=== PATIENT | female | born 1960 | race Caucasian/White ===

== ENCOUNTER 2016-10-08 09:02 | Outpatient (CLI) | payer OTHER | END 2016-10-08 09:03 | disposition home or self-care (01) | DX: Z00.00 Encounter for general adult medical examination without abnormal findings (principal) ==

== ENCOUNTER 2020-11-18 18:20 | Outpatient (CLI) | payer SELFPAY | END 2020-11-18 18:21 | disposition EMS.NT | LOC: EMS 18:20 | DX: T17.298A Other foreign object in pharynx causing other injury, initial encounter (principal) ==

== ENCOUNTER 2022-03-12 13:17 | Emergency (ER) | payer OTHER ==
--- OUTSIDE RECORDS SUMMARY | 2022-03-12 13:32 | EXTERNAL MEDICAL SUMMARY RPT | Continuity of Care Document ---
:1960 Author Organization [facility] Address [address] [place] [address] Phone Allergies No information. Encounters No information. Functional Status No information. Immunizations No information. Medications No information. Problems No information. Procedures No information. Results/Labs test date author facility value unit interpret ation Result panel 1 (unknown) (no (unknown) (unknown) (no value) (units (unk nown) date) unknown) (unknown) (no (unknown) (unknown) [address] [place] [address] (units (unknown) date) unknown) (unknown) (no (unknown) (unknown) [place], [place] (units ( unknown) date) [id number] unknown) (unknown) (no (unknown) (unknown) Merged With [facility] (units (unknown) date) unknown) (unknown) (no (unknown) (unknown) Mammography (units (un known) date) Report unknown) (unknown) (no (unknown) (unknown) Signed (units (unkno wn) date) unknown) (unknown) (no (unknown) (unknown) Ultrasound Report (units (unknown) date) unknown) (unknown) (no (unknown) (unknown) (no value) (units (unk nown) date) unknown) (unknown) (no (unknown) (unknown) 12/27/21 (units (unkno wn) date) unknown) (unknown) (no (unknown) (unknown) 15% of breast (units ( unknown) date) malignancies will unknown) not be visualized mammographically. In the (unknown) (no (unknown) (unknown) 9.1% and her 10 (units (unknown) date) year risk is 3.5%. unknown) According to the ACR, ACS, and NCCN (unknown) (no (unknown) (unknown) ACR BI-RADS (units (un known) date) Category 2: Benign unknown) Finding(s) 3342F (unknown) (no (unknown) (unknown) Aorta: Proximal (units (unknown) date) aorta measures 2.3 unknown) x 2.4 cm. Mid aorta measures 1.7 x 1.6 cm. (unknown) (no (unknown) (unknown) Approved by: (units (u nknown) date) Andrea Chandra M.D. on unknown) 12/27/2021 at 10:07 (unknown) (no (unknown) (unknown) Based on the (units (u nknown) date) Tyrer Helderzick model unknown) (a risk assessment model) the patient's (unknown) (no (unknown) (unknown) CLINICAL: Late (units (unknown) date) Short term follow unknown) up of the left breast, due for bilateral (unknown) (no (unknown) (unknown) COMPARISON: None. (units (unknown) date) unknown) (unknown) (no (unknown) (unknown) Comparison is (units ( unknown) date) made to exams unknown) dated: 12/18/2018 mammogram, 11/27/2018 mammogram, (unknown) (no (unknown) (unknown) Dictated by: (units (u nknown) date) Andrea Chandra M.D. on unknown) 12/27/2021 at 10:05 (unknown) (no (unknown) (unknown) Electronically (units (unknown) date) Signed By: Aby Collins M.D. (unknown) (no (unknown) (unknown) FINDINGS: (units (unkn own) date) unknown) (unknown) (no (unknown) (unknown) Findings and (units (u nknown) date) recommendations unknown) were conveyed to the patient at time of exam. (unknown) (no (unknown) (unknown) IMPRESSION: No (units (unknown) date) abdominal aortic unknown) aneurysm. (unknown) (no (unknown) (unknown) IMPRESSION: (units (un known) date) BENIGN unknown) (unknown) (no (unknown) (unknown) INDICATIONS: (units (u nknown) date) SCREENING; FAMILY unknown) HISTORY OF ISCHEMIC HEART DISEASE (unknown) (no (unknown) (unknown) Iliac arteries: (units (unknown) date) Right common iliac unknown) artery measures 0.9 x 1.0 cm. Left common (unknown) (no (unknown) (unknown) NOTE: For (units (unkn own) date) mammograms, a unknown) report in lay terms will be sent to the patient. (unknown) (no (unknown) (unknown) No other (units (unkno wn) date) abnormality seen unknown) in either breast. Mammograms are otherwise stable. (unknown) (no (unknown) (unknown) TECHNIQUE: Real (units (unknown) date) time scanning was unknown) performed of the aorta and iliac arteries, (unknown) (no (unknown) (unknown) The equal density (units (unknown) date) asymmetry in the unknown) left breast has been stable for 3 years, is (unknown) (no (unknown) (unknown) There is a stable (units (unknown) date) equal density unknown) asymmetry with occasional punctate (unknown) (no (unknown) (unknown) There is no (units (un known) date) mammographic unknown) evidence of malignancy. Return to annual mammogram (unknown) (no (unknown) (unknown) This exam was (units ( unknown) date) interpreted at unknown) Station ID: [id number]. (unknown) (no (unknown) (unknown) a palpable breast (units (unknown) date) mass, a negative unknown) mammogram must not discourage biopsy of a (unknown) (no (unknown) (unknown) additional views (units (unknown) date) and was not seen unknown) as a discrete structure on prior ultrasound. (unknown) (no (unknown) (unknown) annual breast MRI (units (unknown) date) exam along with unknown) mammogram is recommended if the patient's (unknown) (no (unknown) (unknown) aorta measures (units (unknown) date) 1.5 x 1.6 cm. unknown) (unknown) (no (unknown) (unknown) artery measures (units (unknown) date) 0.8 x 1.2 cm. unknown) (unknown) (no (unknown) (unknown) documentation. (units (unknown) date) unknown) (unknown) (no (unknown) (unknown) heterogeneously (units (unknown) date) dense. This may unknown) lower the sensitivity of mammography. (unknown) (no (unknown) (unknown) is 20% or (units (unkn own) date) greater. unknown) (unknown) (no (unknown) (unknown) krg/:12/27/2021 (units (unknown) date) 09:35:54 unknown) (unknown) (no (unknown) (unknown) left breast at 12 (units (unknown) date) o'clock in the unknown) retroareolar region. This is not confirmed (unknown) (no (unknown) (unknown) letter sent: (units (u nknown) date) Normal Exam unknown) (unknown) (no (unknown) (unknown) mammogram, and (units (unknown) date) 10/20/2014 unknown) mammogram - [facility]. The tissue of both breasts (unknown) (no (unknown) (unknown) schedule is (units (un known) date) recommended. unknown) (unknown) (no (unknown) (unknown) suspicious (units (unk nown) date) lesion. unknown) (unknown) (no (unknown) (unknown) with (units (unkno wn) date) fibroglandular unknown) tissue and is benign. (unknown) (no (unknown) (unknown) 04/17/2016 (units (unk nown) date) unknown) (unknown) (no (unknown) (unknown) Accession Number: (units (unknown) date) [id number] unknown) (unknown) (no (unknown) (unknown) Accession Number: (units (unknown) date) [id number] unknown) (unknown) (no (unknown) (unknown) Age/Sex: 61 / F (units (unknown) date) Date of Service: unknown) (unknown) (no (unknown) (unknown) Approximately (units ( unknown) date) unknown) (unknown) (no (unknown) (unknown) BILATERAL DIGITAL (units (unknown) date) DIAGNOSTIC unknown) MAMMOGRAM 3D/2D: 12/27/2021 (unknown) (no (unknown) (unknown) : 1960 (units (unknown) date) Acct:[id number] unknown) (unknown) (no (unknown) (unknown) Distal (units (unkno wn) date) unknown) (unknown) (no (unknown) (unknown) Loc: MAMMO (units (unk nown) date) unknown) (unknown) (no (unknown) (unknown) [id number] (units (unk nown) date) unknown) (unknown) (no (unknown) (unknown) Ordering (units (unkno wn) date) Provider: unknown) Francine Mayfield (unknown) (no (unknown) (unknown) PROCEDURE: US ABD (units (unknown) date) AORTA ANEURYSM unknown) SCREEN (unknown) (no (unknown) (unknown) Patient: (units (unkno wn) date) Laurence Stewart unknown) MR#: (unknown) (no (unknown) (unknown) Procedure: MM (units ( unknown) date) diagnostic mammo unknown) BI (unknown) (no (unknown) (unknown) Procedure: US abd (units (unknown) date) aorta aneurysm unknown) screen (unknown) (no (unknown) (unknown) calcifications in (units (unknown) date) the unknown) (unknown) (no (unknown) (unknown) clinically (units (unk nown) date) unknown) (unknown) (no (unknown) (unknown) consistent (units (unk nown) date) unknown) (unknown) (no (unknown) (unknown) guidelines, an (units (unknown) date) unknown) (unknown) (no (unknown) (unknown) iliac (units (unkno wn) date) unknown) (unknown) (no (unknown) (unknown) imaging. (units (unkno wn) date) unknown) (unknown) (no (unknown) (unknown) is (units (unkno wn) date) unknown) (unknown) (no (unknown) (unknown) lifetime risk (units ( unknown) date) unknown) (unknown) (no (unknown) (unknown) lifetime risk is (units (unknown) date) unknown) (unknown) (no (unknown) (unknown) management of (units ( unknown) date) unknown) (unknown) (no (unknown) (unknown) screening (units (unkn own) date) unknown) (unknown) (no (unknown) (unknown) with (units (unkno wn) date) unknown) (unknown) (no (unknown) (unknown) with image (units (unk nown) date) unknown) Result panel 2 (unknown) (no date) (unknown) (unknown) 0 /uL (unkn own) (unknown) (no date) (unknown) (unknown) 0.7 % (unkn own) (unknown) (no date) (unknown) (unknown) 13.9 % (unkn own) (unknown) (no date) (unknown) (unknown) 14.8 g/dL (unkn own) (unknown) (no date) (unknown) (unknown) 1900 /uL (unkn own) (unknown) (no date) (unknown) (unknown) 200 /uL (unkn own) (unknown) (no date) (unknown) (unknown) 2700 /uL (unkn own) (unknown) (no date) (unknown) (unknown) 274 X10 3/uL (unkn own) (unknown) (no date) (unknown) (unknown) 28.8 PG (unkn own) (unknown) (no date) (unknown) (unknown) 3.5 % (unkn own) (unknown) (no date) (unknown) (unknown) 300 /uL (unkn own) (unknown) (no date) (unknown) (unknown) 34.6 % (unkn own) (unknown) (no date) (unknown) (unknown) 36.4 % (unkn own) (unknown) (no date) (unknown) (unknown) 42.9 % (unkn own) (unknown) (no date) (unknown) (unknown) 5.1 X10 3/uL (unkn own) (unknown) (no date) (unknown) (unknown) 5.15 X10 6/uL (unkn own) (unknown) (no date) (unknown) (unknown) 53.0 % (unkn own) (unknown) (no date) (unknown) (unknown) 6.4 % (unkn own) (unknown) (no date) (unknown) (unknown) 83.2 fL (unkn own) Result panel 3 (unknown) (no date) (unknown) (unknown) 5.6 % (unkn own) Result panel 4 (unknown) (no date) (unknown) (unknown) > 60 mL/min (unkn own) (unknown) (no date) (unknown) (unknown) 0.6 mg/dL (unkn own) (unknown) (no date) (unknown) (unknown) 0.81 mg/dL (unkn own) (unknown) (no date) (unknown) (unknown) 1.8 (units unknown) (unknown) (unknown) (no date) (unknown) (unknown) 103 mmol/L (unkn own) (unknown) (no date) (unknown) (unknown) 13 mg/dL (unkn own) (unknown) (no date) (unknown) (unknown) 139 mmol/L (unkn own) (unknown) (no date) (unknown) (unknown) 16.0 (units unknown) (unknown) (unknown) (no date) (unknown) (unknown) 2.6 g/dL (unkn own) (unknown) (no date) (unknown) (unknown) 25 IU/L (unkn own) (unknown) (no date) (unknown) (unknown) 25 mmol/L (unkn own) (unknown) (no date) (unknown) (unknown) 32 IU/L (unkn own) (unknown) (no date) (unknown) (unknown) 4.5 mmol/L (unkn own) (unknown) (no date) (unknown) (unknown) 4.6 g/dL (unkn own) (unknown) (no date) (unknown) (unknown) 56 U/L (unkn own) (unknown) (no date) (unknown) (unknown) 7.2 g/dL (unkn own) (unknown) (no date) (unknown) (unknown) 9.8 mg/dL (unkn own) (unknown) (no date) (unknown) (unknown) 92 mg/dL (unkn own) Result panel 5 (unknown) (no date) (unknown) (unknown) 17.2 pg/mL (unkn own) (unknown) (no date) (unknown) (unknown) 72.7 mIU/mL (unkn own) Result panel 6 (unknown) (no date) (unknown) (unknown) > 60 mL/min (unkn own) (unknown) (no date) (unknown) (unknown) 0 /uL (unkn own) (unknown) (no date) (unknown) (unknown) 0.6 mg/dL (unkn own) (unknown) (no date) (unknown) (unknown) 0.7 % (unkn own) (unknown) (no date) (unknown) (unknown) 0.81 mg/dL (unkn own) (unknown) (no date) (unknown) (unknown) 1.8 (units unknown) (unknown) (unknown) (no date) (unknown) (unknown) 103 mmol/L (unkn own) (unknown) (no date) (unknown) (unknown) 13 mg/dL (unkn own) (unknown) (no date) (unknown) (unknown) 13.9 % (unkn own) (unknown) (no date) (unknown) (unknown) 139 mmol/L (unkn own) (unknown) (no date) (unknown) (unknown) 14.8 g/dL (unkn own) (unknown) (no date) (unknown) (unknown) 16.0 (units unknown) (unknown) (unknown) (no date) (unknown) (unknown) 17.2 pg/mL (unkn own) (unknown) (no date) (unknown) (unknown) 1900 /uL (unkn own) (unknown) (no date) (unknown) (unknown) 2.6 g/dL (unkn own) (unknown) (no date) (unknown) (unknown) 200 /uL (unkn own) (unknown) (no date) (unknown) (unknown) 25 IU/L (unkn own) (unknown) (no date) (unknown) (unknown) 25 mmol/L (unkn own) (unknown) (no date) (unknown) (unknown) 2700 /uL (unkn own) (unknown) (no date) (unknown) (unknown) 274 X10 3/uL (unkn own) (unknown) (no date) (unknown) (unknown) 28.8 PG (unkn own) (unknown) (no date) (unknown) (unknown) 3.5 % (unkn own) (unknown) (no date) (unknown) (unknown) 300 /uL (unkn own) (unknown) (no date) (unknown) (unknown) 32 IU/L (unkn own) (unknown) (no date) (unknown) (unknown) 34.6 % (unkn own) (unknown) (no date) (unknown) (unknown) 36.4 % (unkn own) (unknown) (no date) (unknown) (unknown) 4.5 mmol/L (unkn own) (unknown) (no date) (unknown) (unknown) 4.6 g/dL (unkn own) (unknown) (no date) (unknown) (unknown) 42.9 % (unkn own) (unknown) (no date) (unknown) (unknown) 5.1 X10 3/uL (unkn own) (unknown) (no date) (unknown) (unknown) 5.15 X10 6/uL (unkn own) (unknown) (no date) (unknown) (unknown) 5.6 % (unkn own) (unknown) (no date) (unknown) (unknown) 53.0 % (unkn own) (unknown) (no date) (unknown) (unknown) 56 U/L (unkn own) (unknown) (no date) (unknown) (unknown) 6.4 % (unkn own) (unknown) (no date) (unknown) (unknown) 7.2 g/dL (unkn own) (unknown) (no date) (unknown) (unknown) 72.7 mIU/mL (unkn own) (unknown) (no date) (unknown) (unknown) 83.2 fL (unkn own) (unknown) (no date) (unknown) (unknown) 9.8 mg/dL (unkn own) (unknown) (no date) (unknown) (unknown) 92 mg/dL (unkn own) Social History No information. Vital Signs No information.
[2022-03-12 13:37] VITALS: BP 128/95
[2022-03-12] MEDS ORDERED: CLINDAMYCIN 150 MG CAPSULE PO STA (15:42)
[2022-03-12] MEDS ORDERED: MECLIZINE 12.5 MG TABLET PO STA (15:42)
--- NOTE | 2022-03-12 15:43 | ED Physician Documentation ---
History of Present Illness - Stated complaint Stated Complaint: NAUSEA/L THUMB PX/HIGH BP - Chief complaint Chief Complaint: Wound - History obtained from History obtained from: Patient - History of Present Illness Timing: How many weeks ago (1) Pain level max: 3 Pain level now: 3 - Additonal information Additional information: 62-year-old female presents to the emergency department with a wound to the left thumb. She states it drained purulent material earlier in the day. Has had redness and swelling. Nothing makes it better or worse. Has also had mild nausea. 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 Review of Systems Constitutional: denies: Fever, Chills Throat: denies: Sore throat Respiratory: denies: Cough GI: reports: Nausea. denies: Vomiting Skin: denies: Rash Musculoskeletal: denies: Neck pain, Back pain PD PAST MEDICAL HISTORY - Past Medical History Psych: Anxiety - Present Medications Home Medications: Ambulatory Orders Medication Instructions Recorded Confirmed Meclizine HCl [Motion Sickness] 25 mg PO Q6H PRN #20 tablet 03/12/22 clindamycin HCL [Cleocin HCl] 300 mg PO Q6H #28 cap 03/12/22 - Allergies Allergies/Adverse Reactions: Allergies Allergy/AdvReac Type Severity Reaction Status Date / Time ondansetron [From Zofran] Allergy Unknown Verified 03/12/22 13:38 prochlorperazine Allergy Unknown Verified 03/12/22 13:38 [From Compazine] - Living Situation Living Arrangement: reports: At home - Social History Does the pt have substance abuse?: No - Family History Family history: reports: Non contributory PD ED PE NORMAL - Vitals Vital signs reviewed: Yes - General General: Alert and oriented X 3, No acute distress - HEENT HEENT: Moist mucous membranes - Neck Neck: Supple, no meningeal sign - Respiratory Respiratory: No respiratory distress - Abdomen Abdomen: Soft, Non tender, Non distended - Derm Derm: Warm and dry - Extremities Extremities: Other (Erythema to the left thumb, dorsal aspect near the nail fold. There appears to been purulent drainage recently. There is no streaking up the hand. It is localized erythema. No tenderness log the palmar aspect. No swelling. Neurovascularly intact) - Neuro Neuro: Alert and oriented X 3 - Psych Psych: Normal mood, Normal affect Results - Vitals Vitals: Vital Signs - 24 hr 03/12/22 13:31 Temperature 36.2 C L Heart Rate 94 Respiratory 16 Rate Blood Pressure 128/95 H O2 Saturation 99 Oxygen O2 Source Room air PD MEDICAL DECISION MAKING - ED course Complexity details: considered differential, d/w patient ED course: Patient appears to have a small amount of cellulitis to the left thumb likely from a paronychia that spontaneously drained. Does not require drainage today. Will place on antibiotics for this. Patient has been using topical antibiotics without relief. We we will also trial her on meclizine for her nausea as she states she has allergies to Zofran and Compazine. Patient is well-appearing, nontoxic. Afebrile. Well-hydrated. No evidence of sepsis. Patient counseled regarding signs and symptoms for which I believe and urgent re-evaluation would be necessary. Patient with good understanding of and agreement to plan and is comfortable going home at this time This document was made in part using voice recognition software. While efforts are made to proofread this document, sound alike and grammatical errors may occur. Departure - Departure Disposition: 01 Home, Self Care Clinical Impression: Paronychia, Nausea Cellulitis Qualifiers: Site of cellulitis: extremity Site of cellulitis of extremity: upper extremity Laterality: left Qualified Code(s): L03.114 - Cellulitis of left upper limb Condition: Good Instructions: ED Infec Skin Cellulitis, ED Fingernail Infec Follow-Up: your,doctor in 1 week [Other] Prescriptions: clindamycin HCL [Cleocin HCl] 300 mg PO Q6H #28 cap Meclizine HCl [Motion Sickness] 25 mg PO Q6H PRN #20 tablet PRN Reason: nausea Comments: Your prescriptions were sent to [facility] in [place]. Please follow-up with your doctor for further care. Follow-up with your doctor in 1 week for a wound check. Return if you worsen. Discharge Date/Time: 03/12/22 15:56
== END 2022-03-12 15:56 | disposition home or self-care (01) ==
LOC: ED 13:17
DX: L03.012 Cellulitis of left finger (principal); R11.0 Nausea
CPT/HCPCS: 99282; 99284; A9270

== ENCOUNTER 2022-03-26 07:42 | Outpatient (CLI) | payer OTHER ==
[2022-03-26 08:15] LABS: ALBUMIN 4.4 g/dL (3.2-5.5); ALBUMIN/GLOBULIN RATIO 1.5 (1.0-2.2); ALKALINE PHOSPHATASE 59 IU/L (42-121); ALT ALANINE AMINOTRANSFERASE 17 IU/L (10-60); AST ASPARTATE AMINOTRANSFERASE 21 IU/L (10-42); BILIRUBIN,TOTAL 0.6 mg/dL (0.2-1.0); BUN - BLOOD UREA NITROGEN 10 mg/dL (6-20); CALCIUM 9.5 mg/dL (8.5-10.3); CARBON DIOXIDE - CO2 25 mmol/L (21-32); CHLORIDE 105 mmol/L (101-111); CHOL/HDL RATIO 4.5 (<4.4); CHOLESTEROL 264 mg/dL; CREATININE 0.9 mg/dL (0.4-1.0); GFR - MDRD 64 (>89); GLUCOSE 104 mg/dL (70-100); HDL CHOLESTEROL 59 mg/dL; LDL CHOLESTEROL,CALCULATED 184 mg/dL; LDL/HDL RATIO 3.1 (<4.4); POTASSIUM 4.2 mmol/L (3.5-5.0); SODIUM 139 mmol/L (135-145); TOTAL PROTEIN 7.3 g/dL (6.7-8.2); TRIGLYCERIDES 105 mg/dL; VLDL CHOLESTEROL 21 mg/dL
[2022-03-26 12:37] LABS: ESTIMATED AVERAGE GLUCOSE 111 mg/dL (70-100); HEMOGLOBIN A1c% 5.5 % (4.27-6.07)
== END 2022-03-26 07:43 | disposition home or self-care (01) ==
LOC: LAB 07:42
PROVIDERS: ATTEND Family Medicine
DX: E56.9 Vitamin deficiency, unspecified (principal); R73.09 Other abnormal glucose; R91.1 Solitary pulmonary nodule; E27.8 Other specified disorders of adrenal gland; R03.0 Elevated blood-pressure reading, without diagnosis of hypertension
CPT/HCPCS: 36415; 80053; 80061; 82306; 83036; 83721

== ENCOUNTER 2022-07-03 18:30 | Emergency (ER) | payer OTHER ==
--- NOTE | 2022-07-03 18:54 | ED Physician Documentation ---
History of Present Illness - Stated complaint Stated Complaint: BP HIGH/HEART RACING - History obtained from History obtained from: Patient - Additonal information Additional information: 62-year-old woman with history of borderline type 2 diabetes on Ozempic, she also takes venlafaxine and BuSpar. She is been feeling bad for the last few days, can nonspecific. Foggy, nauseous. Not a headache per se but a bandlike pressure like she was "hung over." This evening she started to feel intermittent palpitations with mild chest discomfort and checked her blood pressure several times at home and it was in the range of 180/110. Denies pedal edema or calf pain. No abdominal pain or diarrhea. She checked herself for COVID several times and it was negative. Review of Systems Constitutional: reports: Fatigue. denies: Fever, Chills Cardiac: reports: Chest pain / pressure (Very mild), Palpitations Respiratory: denies: Dyspnea PD PAST MEDICAL HISTORY - Past Medical History Psych: Anxiety - Present Medications Home Medications: Ambulatory Orders Medication Instructions Recorded Confirmed Meclizine HCl [Motion Sickness] 25 mg PO Q6H PRN #20 tablet 03/12/22 clindamycin HCL [Cleocin HCl] 300 mg PO Q6H #28 cap 03/12/22 - Allergies Allergies/Adverse Reactions: Allergies Allergy/AdvReac Type Severity Reaction Status Date / Time ondansetron [From Zofran] Allergy Unknown Verified 03/12/22 13:38 prochlorperazine Allergy Unknown Verified 03/12/22 13:38 [From Compazine] - Social History Does the pt have substance abuse?: No PD ED PE NORMAL - Vitals Vital signs reviewed: Yes - General General: Alert and oriented X 3, No acute distress - HEENT HEENT: PERRL, EOMI, Dentition benign - Neck Neck: Supple, no meningeal sign, No bony TTP - Cardiac Cardiac: RRR, No murmur - Respiratory Respiratory: No respiratory distress, Clear bilaterally - Abdomen Abdomen: Normal bowel sounds, Soft, Non tender - Back Back: No CVA TTP, No spinal TTP - Derm Derm: Normal color, Warm and dry - Extremities Extremities: No edema, No calf tenderness / cord - Neuro Neuro: Alert and oriented X 3, script developer 2-12 intact, No motor deficit, No sensory deficit, Normal speech Eye Opening: Spontaneous Motor: Obeys Commands Verbal: Oriented GCS Score: 15 - Psych Psych: Normal mood, Normal affect Results - Vitals Vitals: Vital Signs - 24 hr 07/03/22 07/03/22 18:48 19:29 Temperature 36.4 C L Heart Rate 94 85 Respiratory 12 15 Rate Blood Pressure 144/104 H 130/96 H O2 Saturation 100 98 Oxygen O2 Source Room air - EKG (time done) 1839 Rate: Rate (enter#) (86) Rhythm: NSR [place]: Normal Intervals: Normal [place] QRS: Normal Ischemia: Q waves - Labs Labs: Laboratory Tests 07/03/22 07/03/22 07/03/22 18:47 19:00 19:00 WBC 5.9 RBC 5.07 Hgb 13.8 Hct 42.8 MCV 84.4 MCH 27.2 MCHC 32.2 RDW 13.6 Plt Count 305 MPV 8.9 Neut # (Auto) 2.7 Lymph # (Auto) 2.8 [place] # (Auto) 0.3 Eos # (Auto) 0.2 Baso # (Auto) 0.0 Absolute Nucleated RBC 0.00 Nucleated RBC % 0.0 Sodium 139 Potassium 3.4 L Chloride 102 Carbon Dioxide 25 Anion Gap 12.0 BUN 17 Creatinine 0.8 Estimated GFR (MDRD) 73 L Glucose 109 H POC Whole Bld Glucose 104 H Calcium 9.5 Magnesium 1.9 Total Bilirubin 0.4 AST 21 ALT 21 Alkaline Phosphatase 61 Troponin I High Sens Total Protein 7.3 Albumin 4.3 Globulin 3.0 Albumin/Globulin Ratio 1.4 TSH 07/03/22 07/03/22 19:00 19:00 WBC RBC Hgb Hct MCV MCH MCHC RDW Plt Count MPV Neut # (Auto) Lymph # (Auto) [place] # (Auto) Eos # (Auto) Baso # (Auto) Absolute Nucleated RBC Nucleated RBC % Sodium Potassium Chloride Carbon Dioxide Anion Gap BUN Creatinine Estimated GFR (MDRD) Glucose POC Whole Bld Glucose Calcium Magnesium Total Bilirubin AST ALT Alkaline Phosphatase Troponin I High Sens 2.8 Total Protein Albumin Globulin Albumin/Globulin Ratio TSH 2.48 PD Medical Decision Making - ED course ED course: On the monitor she is having occasional PVCs which do correspond to her palpitations. Her blood pressure is better here than it was at home. Her blood sugar here is 104 which is unremarkable. Twelve-lead EKG showing PVC with small inferior Q waves which could be a normal variant. No ST elevation or depression. 62-year-old female presents with nonspecific symptoms marked with brain fog and palpitations. The palpitations do correspond to PVCs on the monitor. CBC reviewed and normal. CMP reviewed with mild hypokalemia at 3.4. Troponin reviewed at 2.8 normal. TSH reviewed at 2.48, normal. Potassium was repleted orally as this may exacerbate her PVCs. Departure - Departure Disposition: 01 Home, Self Care Clinical Impression: Premature ventricular contraction, Hypokalemia Headache Qualifiers: Headache type: unspecified Headache chronicity pattern: unspecified pattern Intractability: not intractable Qualified Code(s): R51.9 - Headache, unspecified Condition: Good Record reviewed to determine appropriate education?: Yes Instructions: Premature Ventricular Contract About Comments: No serious process was identified today. You do have premature ventricular contractions. Your potassium was borderline low at 3.4. You did receive a potassium supplement orally here. Call your doctor to arrange a follow-up appointment, make the next available appointment. In the interim, return anytime if worse or if new symptoms develop.
[2022-07-03 19:06] LABS: BASOPHILS % (AUTO) 0.5 %; EOSINOPHILS # (AUTO) 0.2 10^3/uL (0.0-0.7); EOSINOPHILS % (AUTO) 2.5 %; HCT - HEMATOCRIT 42.8 % (37.0-47.0); HGB - HEMOGLOBIN 13.8 g/dL (12.0-16.0); LYMPHOCYTES # (AUTO) 2.8 10^3/uL (1.5-3.5); LYMPHOCYTES % (AUTO) 46.3 %; MEAN CORPUSCULAR HEMOGLOBIN 27.2 pg (27.0-31.0); MEAN CORPUSCULAR HGB CONC 32.2 g/dL (32.0-36.0); MEAN CORPUSCULAR VOLUME 84.4 fL (81.0-99.0); MEAN PLATELET VOLUME 8.9 fL (7.9-10.8); MONOCYTES # (AUTO) 0.3 10^3/uL (0.0-1.0); MONOCYTES % (AUTO) 5.7 %; NEUTROPHILS # (AUTO) 2.7 10^3/uL (1.5-6.6); NEUTROPHILS % (AUTO) 44.8 %; PLT - PLATELET COUNT 305 10^3/uL (130-450); RED BLOOD COUNT 5.07 10^6/uL (4.20-5.40); RED CELL DISTRIBUTION WIDTH 13.6 % (12.0-15.0); WHITE BLOOD COUNT 5.9 x10^3/uL (4.8-10.8)
[2022-07-03 19:22] LABS: ALBUMIN 4.3 g/dL (3.2-5.5); ALBUMIN/GLOBULIN RATIO 1.4 (1.0-2.2); BILIRUBIN,TOTAL 0.4 mg/dL (0.2-1.0); CALCIUM 9.5 mg/dL (8.5-10.3); CREATININE 0.8 mg/dL (0.4-1.0); MAGNESIUM 1.9 mg/dL (1.7-2.8); POTASSIUM 3.4 mmol/L (3.5-5.0); TOTAL PROTEIN 7.3 g/dL (6.7-8.2)
[2022-07-03] MEDS ORDERED: POTASSIUM CHLORIDE 20 MEQ TABLET PO STA (19:26)
--- NOTE | 2022-07-03 19:35 | XRAY Report ---
PROCEDURE: Chest 1 View X-Ray INDICATIONS: palpitations TECHNIQUE: One view of the chest was acquired. COMPARISON: None. FINDINGS: Surgical changes and devices: None. Lungs and pleura: No pleural effusions or pneumothorax. Lungs are clear. Mediastinum: Mediastinal contours appear normal. Heart size is normal. Bones and chest wall: No suspicious bony lesions. Overlying soft tissues appear unremarkable. IMPRESSION: No acute process. Reviewed by: Tere Mcdowell MD on 07/03/2022 7:34 PM [facility] Approved by: Tere Mcdowell MD on 07/03/2022 7:34 PM [facility] Station ID: [id number]
--- NOTE | 2022-07-03 19:36 | CT Report ---
PROCEDURE: HEAD WO INDICATIONS: headache TECHNIQUE: Noncontrast 4.5 mm thick angled axial sections acquired from the foramen magnum to the vertex. For r adiation dose reduction, the following was used: automated exposure control, adjustment of mA and/or kV according to patient size. COMPARISON: None. FINDINGS: Image quality: Excellent. CSF spaces: Basal cisterns are patent. No extra-axial fluid collections. Ventricles are normal in size and shape. Brain: No midline shift. No intracranial masses or hemorrhage. Howard-white matter interface is norm al. Skull and face: Calvarium and visualized facial bones are intact, without suspicious lesions. Sinuses: Visualized sinuses and mastoids are clear. IMPRESSION: No acute intracranial abnormality. Reviewed by: Tere Mcdowell MD on 07/03/2022 7:34 PM PST Approved by: Tere Mcdowell MD on 07/03/2022 7:34 PM [facility] Station ID: [id number]
[2022-07-03 20:19] VITALS: BP 130/87
== END 2022-07-03 20:19 | disposition home or self-care (01) ==
LOC: ED 18:30
DX: I49.3 Ventricular premature depolarization (principal); E87.6 Hypokalemia; R51.9 Headache, unspecified
CPT/HCPCS: 36415; 70450; 71045; 80053; 83735; 84443; 84484; 85025; 93005; 99283; 99284; A9270

== ENCOUNTER 2023-04-25 14:27 | Outpatient (CLI) | payer OTHER ==
--- NOTE | 2023-05-01 10:58 | Mammography Report ---
BILATERAL DIGITAL SCREENING MAMMOGRAM 3D/2D: 04/25/2023 CLINICAL: Routine screening. Comparison is made to exams dated: 12/27/2021 mammogram, 12/18/2018 mammogram, and 11/27/2018 mammogram - [facility]. Both breasts are heterogeneously dense, which may obscure small masses (category c / 51-75% glandular tissue). There is an asymmetry in the left breast middle depth outer region seen on the craniocaudal view only . No other significant masses, calcifications, or other findings are seen in either breast. IMPRESSION: INCOMPLETE: NEEDS ADDITIONAL IMAGING EVALUATION The asymmetry in the left breast is indeterminate. A diagnostic mammogram and ultrasound is recommen ded. Based on the Tyrer Cuzick model (a risk assessment model) the patients lifetime risk is 10.3% and he r 10 year risk is 4.3%. According to the ACR, ACS, and NCCN guidelines, an annual breast MRI exam tra ng with mammogram is recommended if the patients lifetime risk is 20% or greater. This exam was interpreted at Station ID: [id number]. NOTE: For mammograms, a report in lay terms will be sent to the patient. Approximately 15% of breast malignancies will not be visualized mammographically. In the management of a palpable breast mass, a negative mammogram must not discourage biopsy of a clinically suspicious lesion. Electronically Signed By: Anusha Orozco M.D., PH.D eb/:04/30/2023 17:07:15 ACR BI-RADS Category 0: Incomplete 3340F PARENCHYMAL PATTERN: (D) - The breast(s) demonstrate(s) heterogeneously dense fibroglandular pardes briceno. BI-RADS CATEGORY: (0) - 0 Mammo and [place] [id number] Immediate follow-up LATERALITY: (B)
== END 2023-04-25 14:28 | disposition home or self-care (01) ==
LOC: DI 14:27
PROVIDERS: ATTEND Nurse Practitioner Family
DX: Z12.31 Encounter for screening mammogram for malignant neoplasm of breast (principal); R92.8 Other abnormal and inconclusive findings on diagnostic imaging of breast; R92.333 Mammographic heterogeneous density, bilateral breasts

== ENCOUNTER 2023-04-25 14:56 | Outpatient (CLI) | payer OTHER ==
[2023-04-25 15:24] LABS: ESTIMATED AVERAGE GLUCOSE 105 mg/dL (70-100); HEMOGLOBIN A1c% 5.3 % (4.27-6.07)
[2023-04-25 17:13] LABS: ALBUMIN 4.5 g/dL (3.2-5.5); ALBUMIN/GLOBULIN RATIO 1.8 (1.0-2.2); ALKALINE PHOSPHATASE 60 IU/L (42-121); ALT ALANINE AMINOTRANSFERASE 11 IU/L (10-60); AST ASPARTATE AMINOTRANSFERASE 17 IU/L (10-42); BILIRUBIN,TOTAL 0.4 mg/dL (0.2-1.0); BUN - BLOOD UREA NITROGEN 14 mg/dL (6-20); CALCIUM 9.9 mg/dL (8.5-10.3); CARBON DIOXIDE - CO2 32 mmol/L (21-32); CHLORIDE 105 mmol/L (101-111); CHOL/HDL RATIO 4.4 (<4.4); CHOLESTEROL 279 mg/dL; CREATININE 0.9 mg/dL (0.6-1.3); GFR - MDRD 64 (>89); GLUCOSE 79 mg/dL (74-104); HDL CHOLESTEROL 64 mg/dL; LDL CHOLESTEROL,CALCULATED 177 mg/dL; LDL/HDL RATIO 2.8 (<4.4); POTASSIUM 4.1 mmol/L (3.5-4.5); SODIUM 140 mmol/L (135-145); TRIGLYCERIDES 191 mg/dL (48-352); VLDL CHOLESTEROL 38 mg/dL
[2023-04-26 03:08] LABS: HCV AB Non Reactive (Non Reactive)
== END 2023-04-25 14:57 | disposition home or self-care (01) ==
LOC: LAB 14:56
PROVIDERS: ATTEND Nurse Practitioner Family
DX: E78.5 Hyperlipidemia, unspecified (principal); Z11.59 Encounter for screening for other viral diseases; R73.9 Hyperglycemia, unspecified; F41.1 Generalized anxiety disorder; R03.0 Elevated blood-pressure reading, without diagnosis of hypertension
CPT/HCPCS: 36415; 80053; 80061; 83036; 83721; 84439; 84443; 84481; 86803

== ENCOUNTER 2023-06-11 08:22 | Outpatient (CLI) | payer OTHER ==
--- NOTE | 2023-06-11 13:17 | DEXA Report ---
PROCEDURE: Dexa Spine and/or Hip INDICATIONS: OSTEOPENIA TECHNIQUE: Dual energy x-ray absorptiometry (DXA) was performed on a [employer] Platform System. Regions measur ed are the AP Spine, femoral neck, and if needed forearm. COMPARISON: None FINDINGS: Lumbar Spine: Bone Mineral Density 1.017 g/cm/cm,T score -1.4. Left Femoral Neck: Bone Mineral Density 0.757 g/cm/cm, T score -2.0. Left Hip: Bone Mineral Density 0.828 g/cm/cm,T score -1.4. (T score greater or equal to -1.0: NORMAL) (T score from -1.1 to -2.4: OSTEOPENIA) (T score less than or equal to -2.5 to: OSTEOPOROSIS) Impression: By WHO criteria, this patient has osteopenia most severe in the left femoral neck. Patients with diagnosis of osteoporosis or osteopenia should have regular bone mineral density assess ment. For those eligible for Medicare, routine testing is allowed once every 2 years. Testing frequ ency can be increased for patients who have rapidly progressing disease or for those who are receivin g medical therapy to restore bone mass. Reviewed by: Kendy Kc MD on 06/11/2023 1:16 PM PST Approved by: Kendy Kc MD on 06/11/2023 1:16 PM PST Station ID: [id number]
== END 2023-06-11 08:23 | disposition home or self-care (01) ==
LOC: DI 08:22
PROVIDERS: ATTEND Nurse Practitioner Family
DX: M85.89 Other specified disorders of bone density and structure, multiple sites (principal)

== ENCOUNTER 2023-07-03 09:47 | Outpatient (CLI) | payer OTHER ==
--- NOTE | 2023-07-03 15:57 | Mammography Report ---
UNILATERAL LEFT DIGITAL DIAGNOSTIC MAMMOGRAM 3D/2D WITH SPOT COMPRESSION: 07/03/2023 CLINICAL: Patient returns today to evaluate an asymmetry in the left breast. Comparison is made to exams dated: 04/25/2023 mammogram - [facility], 12/27/2021 ma mmogram, 12/18/2018 mammogram, 11/27/2018 mammogram, 04/17/2016 mammogram, and 10/20/2014 mammogram - [facility]. The left breast is heterogeneously dense, which may obscure small masses (category c / 51-75% glandul ar tissue). There is an asymmetry in the left breast middle depth lateral region seen on the craniocaudal view on ly. This is less prominent. No other significant masses or calcifications are seen in the breast. IMPRESSION: INCOMPLETE: NEEDS ADDITIONAL IMAGING EVALUATION The asymmetry in the left breast is indeterminate. An ultrasound is recommended. Based on the Tyrer Cuzick model (a risk assessment model) the patient's lifetime risk is 10.3% and he r 10 year risk is 4.3%. According to the ACR, ACS, and NCCN guidelines, an annual breast MRI exam tra ng with mammogram is recommended if the patients lifetime risk is 20% or greater. This exam was interpreted at Station ID: [id number]. NOTE: For mammograms, a report in lay terms will be sent to the patient. Approximately 15% of breast malignancies will not be visualized mammographically. In the management of a palpable breast mass, a negative mammogram must not discourage biopsy of a clinically suspicious lesion. Electronically Signed By: Andrea Chandra M.D. lc/:07/03/2023 10:48:08 ACR BI-RADS Category 0: Incomplete 3340F PARENCHYMAL PATTERN: (D) - The breast(s) demonstrate(s) heterogeneously dense fibroglandular parenchy ma. BI-RADS CATEGORY: (0) - 0 Ultrasound [id number] Immediate follow-up LATERALITY: (B)
--- NOTE | 2023-07-03 15:57 | Ultrasound Report ---
LIMITED ULTRASOUND OF LEFT BREAST: 07/03/2023 CLINICAL: Patient returns today to evaluate a focal asymmetry in the left breast. Comparison is made to exams dated: 07/03/2023 mammogram, 04/25/20[address] - [facility], 12/27/2021 mammogram, 12/18/2018 ultrasound, 12/18/2018 mammogram, and 11/27/2018 mammogram - [facility]. Ultrasound of the left breast 3 o'clock region was performed. Howard scale images of the real-time ex amination were reviewed. No significant abnormalities were seen sonographically in the left breast. IMPRESSION: NEGATIVE There is no sonographic evidence of malignancy. There is no abnormality seen in the left breast to correspond with the mammography finding. Return to annual mammogram screening schedule is recommended. This exam was interpreted at Station ID: [id number]. Electronically Signed By: Andrea Chandra M.D. lc/:07/03/2023 10:49:30 letter sent: No_Letter Ultrasound BI-RADS: 1 Negative BI-RADS CATEGORY: (1) - 1 Mammogram [id number] return to screening LATERALITY: (B)
== END 2023-07-03 09:48 | disposition home or self-care (01) ==
LOC: DI 09:47
PROVIDERS: ATTEND Nurse Practitioner Family
DX: R92.8 Other abnormal and inconclusive findings on diagnostic imaging of breast (principal); R92.332 Mammographic heterogeneous density, left breast

== ENCOUNTER 2023-07-08 15:39 | Outpatient (CLI) | payer OTHER ==
[2023-07-08] MEDS ORDERED: iohexoL-300 100 ML VIAL ONE ×2 (15:53)
[2023-07-08] MEDS: iohexoL-300 100 ML VIAL IVP ONE (17:00)
--- NOTE | 2023-07-09 08:13 | CT Report ---
PROCEDURE: Abdomen W/WO INDICATIONS: ADRENAL NODULE, LUNG NODULE CONTRAST: 125mL Omni 300 TECHNIQUE: 5 mm thick sections acquired from the diaphragms to the symphysis. 5 mm coronal and sagittal reforma ts were performed. For radiation dose reduction, the following was used: automated exposure control , adjustment of mA and/or kV according to patient size. COMPARISON: None FINDINGS: Image quality: Adequate. Lack of intravenous contrast limits evaluation of the visceral organs. ABDOMEN: Lung bases: Please see same-day CT chest. Small hiatal hernia. Elevation of the left hemidiaphragm. Solid organs: Liver demonstrates a noncirrhotic morphology. Gallbladder, pancreas and visualized sple en are unremarkable. Right adrenal nodule measuring 2.1 x 1.5 x 1.4 cm with Hounsfield unit of -8 (8/ 65, 67, 4/76). No left-sided adrenal nodule. No hydronephrosis or nephrolithiasis bilaterally. Right lower pole exophytic subcentimeter hypodensity is too small to characterize, statistically a cyst. Peritoneum and bowel: Bowel loops demonstrate normal wall thickness and caliber. Above-average colon ic stool burden. Moderate amount of gas in the sigmoid colon. No free fluid or air. Nodes and vessels: No retroperitoneal or mesenteric adenopathy by size criteria. Aorta and inferior vena cava are normal in size. Mild calcification of the abdominal aorta. Miscellaneous: Tiny fat-containing umbilical hernia. Bones: No suspicious bony lesions. No vertebral body compression fractures. Mild multilevel degene rative changes of the spine. IMPRESSION: 1.Right adrenal nodule measures 2.1 x 1.5 x 1.4 cm with Hounsfield unit of -8 compatible with a benig n adrenal adenoma. No additional follow-up needed. 2.Above-average colonic stool burden with moderate gas in the sigmoid colon which may correlate with constipation. Reviewed by: Jose Antonio Lozano MD on 07/09/2023 8:11 AM PST Approved by: Jose Antonio Lozano MD on 07/09/2023 8:11 AM PST Station ID: [id number]
--- NOTE | 2023-07-09 13:53 | CT Report ---
PROCEDURE: Chest WO INDICATIONS: ADRENAL NODULE, LUNG NODULE TECHNIQUE: A CT scan of the chest was performed. Intravenous contrast media was not administered. Images were re corded and evaluated at appropriate window settings. Reformats: axial MIP of the chest, coronal and s agittal. For radiation dose reduction, the following was used: automated exposure control, adjustment of mA and/or kV according to patient size. COMPARISON: None available. FINDINGS: Image quality: Diagnostic. Chest wall and lower neck: No thyroid nodule which requires sonographic follow up. No axillary or sup raclavicular adenopathy by size. Elevation of the left hemidiaphragm. Lungs and pleura: No consolidation. No pleural effusions. No pneumothorax. No suspicious pulmonary n odules which require follow up. Left lower lobe solid, non-calcified pulmonary nodule measuring 4mm. Subcentimeter granuloma in the left lower lobe. Left lower lobe linear atelectasis/scar. Mediastinum: Heart size is normal. No pericardial effusion. No large vessel abnormality. No mediastin al adenopathy by size criteria. Bones: No aggressive osseous abnormality. No acute fracture. Mild multilevel degenerative changes of the spine. Upper Abdomen: Please see same day CT abdomen. IMPRESSION: 1.Left lower lobe solid, non-calcified pulmonary nodule measuring 4mm. Patient reports no prior imagi ng. - Fleischner guidelines: If patient is low risk, no additional follow-up needed. If patient is high r isk, consider repeat CT chest in 12 months. 2. Please see same day CT abdomen for additional findings. Reviewed by: Jose Antonio Lozano MD on 07/09/2023 1:51 PM PST Approved by: Jose Antonio Lozano MD on 07/09/2023 1:51 PM PST Station ID: [id number]
== END 2023-07-08 15:40 | disposition home or self-care (01) ==
LOC: DI 15:39
PROVIDERS: ATTEND Nurse Practitioner Family
DX: E27.8 Other specified disorders of adrenal gland (principal); R91.1 Solitary pulmonary nodule; Z71.3 Dietary counseling and surveillance; E78.5 Hyperlipidemia, unspecified; R73.9 Hyperglycemia, unspecified; Z71.89 Other specified counseling
CPT/HCPCS: 71250; 74170; 97802; Q9967

== ENCOUNTER 2023-10-19 11:39 | Emergency (ER) | payer OTHER ==
[2023-10-19 12:23] LABS: BASOPHILS % (AUTO) 0.3 %; EOSINOPHILS # (AUTO) 0.2 10^3/uL (0.0-0.7); EOSINOPHILS % (AUTO) 2.8 %; HCT - HEMATOCRIT 41.8 % (37.0-47.0); HGB - HEMOGLOBIN 13.1 g/dL (12.0-16.0); LYMPHOCYTES % (AUTO) 35.1 %; MEAN CORPUSCULAR HEMOGLOBIN 27.2 pg (27.0-31.0); MEAN CORPUSCULAR HGB CONC 31.3 g/dL (32.0-36.0); MEAN CORPUSCULAR VOLUME 86.7 fL (81.0-99.0); MEAN PLATELET VOLUME 8.8 fL (7.9-10.8); MONOCYTES # (AUTO) 0.4 10^3/uL (0.0-1.0); MONOCYTES % (AUTO) 6.1 %; NEUTROPHILS # (AUTO) 3.2 10^3/uL (1.5-6.6); NEUTROPHILS % (AUTO) 55.5 %; PLT - PLATELET COUNT 264 10^3/uL (130-450); RED BLOOD COUNT 4.82 10^6/uL (4.20-5.40); WHITE BLOOD COUNT 5.7 x10^3/uL (4.8-10.8)
--- NOTE | 2023-10-19 12:33 | ED Physician Documentation ---
History of Present Illness - Stated complaint Stated Complaint: SPOTTY VISION,VILLALPANDO - Chief complaint Chief Complaint: Neuro - History obtained from History obtained from: Patient - History of Present Illness Pain level max: 0 Pain level now: 0 - Additonal information Additional information: Patient is a 63-year-old female who presents to the emergency department stating that over the past 4 to 5 days she has had 2-3 episodes of seeing bright spots in her vision, she describes it as looking through a kaleidoscope seeing triangles. She states that she has a mild headache with these as well. Takes ibuprofen and all of the symptoms resolved. No falls. No trauma. No focal neurological deficits. No difficulty with speech, swallowing etc. Patient states that she recently started on escitalopram. No vomiting. No fevers. No chills. Currently asymptomatic. Review of Systems Constitutional: denies: Fever, Chills GI: denies: Nausea, Vomiting, Diarrhea Skin: denies: Rash Musculoskeletal: denies: Neck pain, Back pain Neurologic: denies: Focal weakness, Numbness, Syncope, Seizure, Confused, Altered mental status, Head injury, LOC PD PAST MEDICAL HISTORY - Past Medical History Past Medical History: Yes Cardiovascular: High cholesterol Respiratory: None Neuro: None Endocrine/Autoimmune: None GI: None EUCLID OPERATOR: None : None HEENT: None Psych: Anxiety Musculoskeletal: None Derm: Other - Past Surgical History Past Surgical History: Yes Ortho: Spine surgery /EUCLID OPERATOR: Dilation and currettage, Tubal ligation - Present Medications Home Medications: Ambulatory Orders Medication Instructions Recorded Confirmed ALPRAZolam [Xanax] 0.25 mg PO DAILY PRN 10/19/23 10/19/23 Acyclovir 400 mg PO BID 10/19/23 10/19/23 Escitalopram [Lexapro] 10 mg PO DAILY 10/19/23 10/19/23 Propranolol HCl 20 mg PO TID PRN 10/19/23 10/19/23 Semaglutide [Ozempic] 1 mg SQ Q7D 10/19/23 10/19/23 Venlafaxine HCl 75 mg PO DAILY 10/19/23 10/19/23 - Allergies Allergies/Adverse Reactions: Allergies Allergy/AdvReac Type Severity Reaction Status Date / Time ondansetron [From Zofran] Allergy Unknown Verified 10/19/23 11:51 prochlorperazine Allergy Unknown Verified 10/19/23 11:51 [From Compazine] - Social History Does the pt smoke?: No Smoking Status: Former smoker Does the pt drink ETOH?: No Does the pt have substance abuse?: No - Immunizations Immunizations are current?: Yes - POLST Patient has POLST: No PD ED PE NORMAL - Vitals Vital signs reviewed: Yes - General General: Alert and oriented X 3, No acute distress - HEENT HEENT: Atraumatic, PERRL, EOMI, Ears normal, Moist mucous membranes, Pharynx benign - Neck Neck: Supple, no meningeal sign, No bony TTP - Cardiac Cardiac: RRR - Respiratory Respiratory: No respiratory distress, Clear bilaterally - Abdomen Abdomen: Soft, Non tender, Non distended - Derm Derm: Warm and dry - Extremities Extremities: No edema - Neuro Neuro: Alert and oriented X 3, hand molder and caster 2-12 intact, No motor deficit, No sensory deficit, Normal speech Eye Opening: Spontaneous Motor: Obeys Commands Verbal: Oriented GCS Score: 15 - Psych Psych: Normal mood, Normal affect Results - Vitals Vitals: Vital Signs - 24 hr 10/19/23 10/19/23 11:51 13:18 Temperature 36.3 C L Heart Rate 93 68 Respiratory 16 12 Rate Blood Pressure 122/76 128/78 O2 Saturation 97 98 Oxygen O2 Source Room air - Labs Labs: Laboratory Tests 10/19/23 10/19/23 12:18 12:18 WBC 5.7 RBC 4.82 Hgb 13.1 Hct 41.8 MCV 86.7 MCH 27.2 MCHC 31.3 L RDW 13.0 Plt Count 264 MPV 8.8 Neut # (Auto) 3.2 Lymph # (Auto) 2.0 [place] # (Auto) 0.4 Eos # (Auto) 0.2 Baso # (Auto) 0.0 Absolute Nucleated RBC 0.00 Nucleated RBC % 0.0 Sodium 140 Potassium 3.7 Chloride 106 Carbon Dioxide 28 Anion Gap 6.0 BUN 13 Creatinine 0.8 Estimated GFR (MDRD) 73 L Glucose 114 H Calcium 9.5 Total Bilirubin 0.5 AST 15 ALT 11 Alkaline Phosphatase 53 Total Protein 6.4 Albumin 4.2 Globulin 2.2 Albumin/Globulin Ratio 1.9 - Rads (name of study) head CT Relevant Findings:: Final report received, See rad report PD Medical Decision Making - ED course Complexity details: reviewed results, re-evaluated patient, considered differential, d/w patient ED course: Patient with a normal examination here. Normal head CT. Normal laboratory t esting. Sounds as if she is having scintillating scotoma prior to migraines. Lexapro can be associated with headaches. Has a symptoms started after she recently started Lexapro, would consider stopping this medication. She will follow-up with her doctor to discuss this. No visual field deficits. Normal extraocular movements. Normal neuroexam. NIH stroke scale 0. Patient counseled regarding signs and symptoms for which I believe and urgent re- evaluation would be necessary. Patient with good understanding of and agreement to plan and is comfortable going home at this time This document was made in part using voice recognition software. While efforts are made to proofread this document, sound alike and grammatical errors may occur. Departure - Departure Disposition: 01 Home, Self Care Clinical Impression: Scintillating scotoma of both eyes Headache Qualifiers: Headache type: unspecified Headache chronicity pattern: unspecified pattern Intractability: not intractable Qualified Code(s): R51.9 - Headache, unspecified Condition: Good Instructions: ED Headache Migraine Follow-Up: GINI HER NP [Primary Care Provider] - Comments: You appear to be having headaches with what we call scintillating scotoma. This is likely due to the Lexapro. Your CT scan does not show any acute abnormalities. Your laboratory testing does not show any acute abnormalities. Please follow-up with your doctor for further care and return if you worsen. You can continue to use Motrin or Tylenol as needed for headaches. Forms: PCP List Discharge Date/Time: 10/19/23 13:18
[2023-10-19 12:41] LABS: ALBUMIN 4.2 g/dL (3.2-5.5); ALBUMIN/GLOBULIN RATIO 1.9 (1.0-2.2); BILIRUBIN,TOTAL 0.5 mg/dL (0.2-1.0); CALCIUM 9.5 mg/dL (8.5-10.3); CREATININE 0.8 mg/dL (0.6-1.3); POTASSIUM 3.7 mmol/L (3.5-4.5); TOTAL PROTEIN 6.4 g/dL (6.4-8.9)
--- NOTE | 2023-10-19 12:52 | CT Report ---
PROCEDURE: Head WO INDICATIONS: new onset headaches, vision changes TECHNIQUE: Noncontrast 4.5 mm thick angled axial sections acquired from the foramen magnum to the vertex. For r adiation dose reduction, the following was used: automated exposure control, adjustment of mA and/or kV according to patient size. COMPARISON: 07/03/2022 FINDINGS: Image quality: Excellent. CSF spaces: Basal cisterns are patent. No extra-axial fluid collections. Ventricles are normal in size and shape. Brain: No midline shift. No intracranial masses or hemorrhage. Howard-white matter interface is norm al. Skull and face: Calvarium and visualized facial bones are intact, without suspicious lesions. Sinuses: Visualized sinuses and mastoids are clear. IMPRESSION: No acute intracranial pathology. Reviewed by: Babatunde Curran MD on 10/19/2023 11:51 AM [facility] Approved by: Babatunde Curran MD on 10/19/2023 11:51 AM [facility] Station ID: [id number]
[2023-10-19 13:22] VITALS: BP 128/78; O2SAT 98
== END 2023-10-19 13:18 | disposition home or self-care (01) ==
LOC: ED 11:39
DX: H53.123 Transient visual loss, bilateral (principal); R51.9 Headache, unspecified; F41.9 Anxiety disorder, unspecified; Z87.891 Personal history of nicotine dependence; Z79.899 Other long term (current) drug therapy
CPT/HCPCS: 36415; 80053; 85025; 99283; 99284